=== PATIENT | female | born 1925 | race Caucasian/White ===

== ENCOUNTER → 2017-04-08 | Outpatient (CLI) | payer OTHER, MEDICARE ==
[~2017-04-08] MED LIST: ACT/35 PO; CALC600T37 PO; CETI10TA10 PO; CHOL400T PO; LISI-790 PO; MONT1TAB3 PO; OLOP0.1S2 OP; OSEL75CA12 PO; PANT40TA PO; SIMV20TA2 PO
[2017-04-08 17:27] LABS: BASO % 0.6 %; BASO ABS # 0.03 K/uL (0-0.2); COMPLETE YES; EOS % 1.4 %; HEMATOCRIT 37.5 % (37-47); IG% 0.2 %; LYMPH % 22.7 %; LYMPH ABS # 1.16 K/uL (1.2-3.4); MEAN CELL VOLUME 86.2 fL (80-100); MEAN CORPUSCULAR HEMOGLOBIN 28.3 pg (25-34); MEAN CORPUSCULAR HGB CONC 32.8 g/dl (32-36); MEAN PLATELET VOLUME 8.8 fL (7.4-10.4); MONO % 12.7 %; NEUT % 62.4 %; PLATELET COUNT 252 K/uL (130-400); RED BLOOD COUNT 4.35 M/uL (4.2-5.4)
[2017-04-08 18:07] LABS: ALT/SGPT 25 U/L (12-78); AST/SGOT 25 U/L (15-37); BLOOD UREA NITROGEN 16 mg/dl (7-18); BUN/CREATININE RATIO 16.5 (10-20); CALCIUM 9.3 mg/dl (8.5-10.1); CARBON DIOXIDE 29 mmol/L (21-32); CHLORIDE 94 mmol/L (98-107); GLUCOSE 91 mg/dl (70-99); POTASSIUM 4.5 mmol/L (3.5-5.1); SODIUM 129 mmol/L (136-145)
[2017-04-08 18:12] LABS: ALB/GLOB RATIO 1.2 (0.9-2); ALKALINE PHOSPHATASE 69 U/L (45-117)
== END | disposition home or self-care (01) ==
LOC: C.LABPBG 12:55
PROVIDERS: ATTEND Family Medicine
DX: R07.9 Chest pain, unspecified (principal); R68.84 Jaw pain

== ENCOUNTER → 2017-04-10 | Outpatient (CLI) | payer OTHER, MEDICARE ==
[2017-04-10 17:10] LABS: BLOOD UREA NITROGEN 14 mg/dl (7-18); BUN/CREATININE RATIO 16.1 (10-20); CALCIUM 8.9 mg/dl (8.5-10.1); CARBON DIOXIDE 27 mmol/L (21-32); CHLORIDE 96 mmol/L (98-107); CREATININE 0.85 mg/dl (0.60-1.20); GLUCOSE 130 mg/dl (70-99); POTASSIUM 4.4 mmol/L (3.5-5.1); SODIUM 128 mmol/L (136-145)
== END | disposition home or self-care (01) ==
LOC: C.LABPBG 11:48
PROVIDERS: ATTEND Family Medicine
DX: E87.1 Hypo-osmolality and hyponatremia (principal)

== ENCOUNTER → 2017-04-20 | Outpatient (CLI) | payer OTHER, MEDICARE ==
[2017-04-20 12:47] LABS: BLOOD UREA NITROGEN 27 mg/dl (7-18); BUN/CREATININE RATIO 26.9 (10-20); CALCIUM 9.3 mg/dl (8.5-10.1); CARBON DIOXIDE 28 mmol/L (21-32); CHLORIDE 100 mmol/L (98-107); CHOLESTEROL 204 mg/dl (0-200); GLUCOSE 76 mg/dl (70-99); POTASSIUM 4.8 mmol/L (3.5-5.1); SODIUM 132 mmol/L (136-145); TRIGLYCERIDES 89 mg/dl (0-150); VERY LOW DENSITY LIPOPROT CALC 18 mg/dl
[2017-04-20 12:58] LABS: CHOLESTEROL/HDL RATIO 2.2; HDL CHOLESTEROL 91 mg/dl; LDL CHOLESTEROL CALCULATED 95 mg/dl
== END | disposition home or self-care (01) ==
LOC: C.LABPBG 11:00
PROVIDERS: ATTEND Family Medicine
DX: E87.1 Hypo-osmolality and hyponatremia (principal)

== ENCOUNTER → 2017-04-29 | Outpatient (CLI) | payer OTHER, MEDICARE ==
[2017-04-29 17:33] LABS: BASO % 0.7 %; BASO ABS # 0.04 K/uL (0-0.2); COMPLETE YES; EOS % 1.6 %; HEMATOCRIT 36.5 % (37-47); IG% 0.4 %; LYMPH % 15.8 %; LYMPH ABS # 0.89 K/uL (1.2-3.4); MEAN CELL VOLUME 85.7 fL (80-100); MEAN CORPUSCULAR HEMOGLOBIN 28.2 pg (25-34); MEAN CORPUSCULAR HGB CONC 32.9 g/dl (32-36); MEAN PLATELET VOLUME 8.8 fL (7.4-10.4); MONO % 9.7 %; NEUT % 71.8 %; PLATELET COUNT 264 K/uL (130-400); RED BLOOD COUNT 4.26 M/uL (4.2-5.4); WHITE BLOOD COUNT 5.65 K/uL (4.8-10.8)
[2017-04-29 17:45] LABS: BLOOD UREA NITROGEN 11 mg/dl (7-18); CALCIUM 9.1 mg/dl (8.5-10.1); CARBON DIOXIDE 26 mmol/L (21-32); CHLORIDE 96 mmol/L (98-107); CREATININE 0.86 mg/dl (0.60-1.20); GLUCOSE 111 mg/dl (70-99); POTASSIUM 4.8 mmol/L (3.5-5.1); SODIUM 129 mmol/L (136-145)
[2017-04-29 17:59] LABS: URINE APPEARANCE CLEAR (CLEAR); URINE BILIRUBIN NEG (NEG); URINE COLOR YELLOW; URINE EPITHELIAL CELL AUTO 0-5 /lpf (0-5); URINE NITRITE NEG (NEG); URINE PH 7.5 (4.5-7.5); URINE SPECIFIC GRAVITY 1.012 (1.000-1.030); UROBILINOGEN NEG (NEG)
[2017-04-29 18:10] LABS: MANUAL MICROSCOPIC REQUIRED? NO; REVIEW REQ? NO
== END | disposition home or self-care (01) ==
LOC: C.LABPBG 12:05
PROVIDERS: ATTEND Family Medicine
DX: E87.1 Hypo-osmolality and hyponatremia (principal); R53.1 Weakness

== ENCOUNTER → 2017-06-23 | Outpatient (CLI) | payer OTHER, MEDICARE ==
[2017-06-23 17:58] LABS: BLOOD UREA NITROGEN 19 mg/dl (7-18); BUN/CREATININE RATIO 18.2 (10-20); CALCIUM 9.3 mg/dl (8.5-10.1); CARBON DIOXIDE 29 mmol/L (21-32); CHLORIDE 95 mmol/L (98-107); CREATININE 1.02 mg/dl (0.60-1.20); GLUCOSE 91 mg/dl (70-99); PHOSPHORUS 3.2 mg/dl (2.5-4.9); POTASSIUM 4.6 mmol/L (3.5-5.1); SODIUM 129 mmol/L (136-145)
== END | disposition home or self-care (01) ==
LOC: C.LABPBG 11:20
PROVIDERS: ATTEND Internal Medicine Nephrology
DX: E87.1 Hypo-osmolality and hyponatremia (principal)

== ENCOUNTER → 2017-07-06 | Outpatient (CLI) | payer OTHER, MEDICARE ==
[2017-07-06 13:19] LABS: HEMATOCRIT 37.9 % (37-47); MEAN CELL VOLUME 86.9 fL (80-100); MEAN CORPUSCULAR HEMOGLOBIN 28.7 pg (25-34); MEAN PLATELET VOLUME 8.9 fL (7.4-10.4); PLATELET COUNT 281 K/uL (130-400); RED BLOOD COUNT 4.36 M/uL (4.2-5.4); WHITE BLOOD COUNT 4.86 K/uL (4.8-10.8)
[2017-07-06 15:06] LABS: ALT/SGPT 21 U/L (12-78); BLOOD UREA NITROGEN 12 mg/dl (7-18); BUN/CREATININE RATIO 15.5 (10-20); CALCIUM 9.4 mg/dl (8.5-10.1); CARBON DIOXIDE 27 mmol/L (21-32); CHLORIDE 98 mmol/L (98-107); CHOLESTEROL 185 mg/dl (0-200); GLUCOSE 93 mg/dl (70-99); POTASSIUM 4.4 mmol/L (3.5-5.1); SODIUM 131 mmol/L (136-145); TRIGLYCERIDES 91 mg/dl (0-150); VERY LOW DENSITY LIPOPROT CALC 18 mg/dl
[2017-07-06 15:08] LABS: ALB/GLOB RATIO 1.2 (0.9-2); ALKALINE PHOSPHATASE 73 U/L (45-117); AST/SGOT 24 U/L (15-37); CHOLESTEROL/HDL RATIO 1.7; HDL CHOLESTEROL 106 mg/dl; LDL CHOLESTEROL CALCULATED 61 mg/dl; PHOSPHORUS 3.1 mg/dl (2.5-4.9)
== END | disposition home or self-care (01) ==
LOC: C.LABPBG 08:05
PROVIDERS: ATTEND Family Medicine
DX: E87.1 Hypo-osmolality and hyponatremia (principal); I10 Essential (primary) hypertension; E78.5 Hyperlipidemia, unspecified

== ENCOUNTER → 2017-07-15 | Outpatient (CLI) | payer OTHER, MEDICARE ==
[2017-07-15 12:53] LABS: BLOOD UREA NITROGEN 15 mg/dl (7-18); BUN/CREATININE RATIO 16.3 (10-20); CALCIUM 9.2 mg/dl (8.5-10.1); CARBON DIOXIDE 27 mmol/L (21-32); CHLORIDE 98 mmol/L (98-107); CREATININE 0.92 mg/dl (0.60-1.20); GLUCOSE 98 mg/dl (70-99); POTASSIUM 4.4 mmol/L (3.5-5.1); SODIUM 133 mmol/L (136-145)
[2017-07-15 12:54] LABS: PHOSPHORUS 3.2 mg/dl (2.5-4.9)
== END | disposition home or self-care (01) ==
LOC: C.LABPBG 09:20
PROVIDERS: ATTEND Internal Medicine Nephrology
DX: E87.1 Hypo-osmolality and hyponatremia (principal)

== ENCOUNTER 2017-09-02 18:10 | Inpatient (IN) | payer OTHER, MEDICARE ==
[~2017-09-02] VITALS: Ht 152.4 cm; Wt 60.8 kg
[~2017-09-02 18:10] MED LIST changes: -CETI10TA10 PO; -MONT1TAB3 PO; -PANT40TA PO
[2017-09-02] MEDS ORDERED: SODIUM CHLORIDE 0.9% 1000ML 1,000 ML IV STA (18:20)
[2017-09-02] MEDS ORDERED: RANI150T85 PO (18:56)
--- NOTE | 2017-09-02 19:00 | DIAGNOSTIC IMAGING REPORT ---
SINGLE VIEW CHEST CLINICAL HISTORY: Generalized weakness. Cough. FINDINGS: An AP, portable, upright chest radiograph is compared to study dated 11/28/2012. The examination is degraded by portable technique and patient rotation. The cardiac silhouette is not well evaluated. There is atherosclerotic calcification of the thoracic aorta. The pulmonary vasculature is noncongested. There is a large hiatal hernia. Bibasilar atelectasis is observed. No airspace consolidation is seen typical for pneumonia and there is no large pleural effusion. No pneumothorax is seen. The skeletal structures are osteopenic. Degenerative change and moderate scoliosis are identified in the thoracic spine. IMPRESSION: 1. No acute cardiopulmonary abnormality. 2. Large hiatal hernia. Electronically signed by: Montana Starr M.D. 09/02/2017 6:59 PM Dictated Date/Time: 09/02/2017 6:58 PM
[2017-09-02 19:36] LABS: BASO % 0.1 %; BASO ABS # 0.01 K/uL (0-0.2); EOS % 0.1 %; EOS ABS # 0.01 K/uL (0-0.5); HEMATOCRIT 40.7 % (37-47); HEMOGLOBIN 13.2 g/dL (12.0-16.0); IG# 0.01 K/uL (0.00-0.02); LYMPH % 5.6 %; LYMPH ABS # 0.55 K/uL (1.2-3.4); MEAN CELL VOLUME 87.3 fL (80-100); MEAN CORPUSCULAR HEMOGLOBIN 28.3 pg (25-34); MEAN CORPUSCULAR HGB CONC 32.4 g/dl (32-36); MEAN PLATELET VOLUME 8.7 fL (7.4-10.4); MONO % 7.8 %; MONO ABS # 0.77 K/uL (0.11-0.59); NEUT % 86.3 %; NEUT ABS # 8.46 K/uL (1.4-6.5); PLATELET COUNT 219 K/uL (130-400); RED CELL DISTRIBUTION WIDTH CV 14.4 % (11.5-14.5); RED CELL DISTRIBUTION WIDTH SD 46.2 fL (36.4-46.3); WHITE BLOOD COUNT 9.81 K/uL (4.8-10.8)
[2017-09-02 19:52] LABS: INR 0.9 (0.9-1.1); PTT PATIENT 25.7 SECONDS (21.0-31.0)
[2017-09-02 20:05] LABS: BLOOD UREA NITROGEN 11 mg/dl (7-18); CREATININE 0.94 mg/dl (0.60-1.20); GLUCOSE 130 mg/dl (70-99)
[2017-09-02 20:06] LABS: ALBUMIN 4.1 gm/dl (3.4-5.0); ALT/SGPT 24 U/L (12-78); AST/SGOT 22 U/L (15-37); CALCIUM 9.2 mg/dl (8.5-10.1); CARBON DIOXIDE 29 mmol/L (21-32); LIPASE 133 U/L (73-393); POTASSIUM 3.8 mmol/L (3.5-5.1); SODIUM 128 mmol/L (136-145)
[2017-09-02 20:14] LABS: ALKALINE PHOSPHATASE 83 U/L (45-117); CKMB 2.5 ng/ml (0.5-3.6); TOTAL PROTEIN 7.9 gm/dl (6.4-8.2)
[2017-09-02 20:19] LABS: INFLUENZA B ANTIGEN Neg for Influ B (NEG)
--- NOTE | 2017-09-02 20:34 | DIAGNOSTIC IMAGING REPORT ---
CT SCAN OF THE BRAIN WITHOUT IV CONTRAST CLINICAL HISTORY: Headache. COMPARISON STUDY: No priors. TECHNIQUE: Unenhanced axial CT scan of the brain is performed from the vertex to the skull base. A dose lowering technique was utilized adhering to the principles of ALARA. CT DOSE: 537.48 mGy.cm FINDINGS: Brain parenchyma: There are age-related involutional changes noting mild patchy subcortical and periventricular microangiopathic change. There is no hemorrhage, mass effect, or evidence of acute territorial ischemia by CT criteria. Hall-white matter is preserved. No extra-axial fluid collection is seen. Ventricles, sulci, cisterns: Prominent secondary to involutional change. Intracranial vasculature: There is atherosclerotic calcification of the cavernous carotid and vertebral arteries. Calvarium: Unremarkable. Sinuses and mastoids: Mild mucosal thickening is seen within the ethmoid sinuses. The remaining visualized paranasal sinuses are clear. There is trace fluid in the left mastoid air cells. The right mastoid air cells are well pneumatized. Orbits: The bony orbits are grossly intact. There is a right ocular lens implant. IMPRESSION: There is no hemorrhage, mass effect, or evidence of acute territorial ischemia by CT criteria. Electronically signed by: Montana Starr M.D. 09/02/2017 8:33 PM Dictated Date/Time: 09/02/2017 8:32 PM
[2017-09-02] MEDS ORDERED: ONDANSETRON INJ 2 MG/ML 2 ML VIAL IV STA (20:48)
[2017-09-02] MEDS ORDERED: ALBUT/IPRATROP 3MG/0.5MG NEB 3 ML VIAL INH STA (22:07)
[2017-09-02] MEDS ORDERED: AZITHROMYCIN 250 MG TAB PO STA (22:07)
[2017-09-02] MEDS ORDERED: ACETAMINOPHEN 500 MG TAB PO STA (22:47)
[2017-09-02] MEDS ORDERED: CEFTRIAXONE SOD INJ 1 GM ADDVIAL IV STA (22:47)
[2017-09-02] MEDS ORDERED: ONDANSETRON INJ 2 MG/ML 2 ML VIAL IV PRN (23:45)
[2017-09-02] MEDS ORDERED: NITROGLYCERIN 0.4 MG SL PER TAB CHARGE SL PRN (23:45)
[2017-09-02] MEDS ORDERED: ALUMINUM/MAGNESIUM/SIMETH (MAALOX MAX) 30 ML UDC PO PRN (23:45)
[2017-09-02] MEDS ORDERED: POLYETHYLENE (MIRALAX) 17 GM PACK PO PRN (23:45)
[2017-09-02] MEDS ORDERED: ACETAMINOPHEN 325 MG TAB PO PRN (23:45)
[2017-09-02] MEDS ORDERED: MAGNESIUM HYDROXIDE SUSP 30 ML UDC PO PRN (23:45)
--- NOTE | 2017-09-02 23:56 | History and Physical ---
History & Physical Date & Time of Service: Sep 02, 2017 at 23:56 Chief Complaint: Headache,Neck Pain,Chest Cough Primary Care Physician: Moriah Hines DO History of Present Illness Source: patient, hospital records This is an 89 y/o F who presents with generalized weakness and illness for 2 weeks. She started off with a URI and has had worsening congestion, cough. She did also start to become slightly short of breath today. Today she also complains of headache and neck pain, generalized achiness and fatigue. She denies other symptoms. She does take sodium chronically for low sodium. She has taken nebulizer tx, delsum and tylenol. She sees cardiology for mitral and tricuspid regurg. The patient though would like to go home. She was hypoxic in the ER in the 's. The patient does have a history of asthma. Family History Patient reports no known family medical history. Social History Smoking Status: Never Smoker Alcohol Use: none Drug Use: none Occupational Status: retired Immunizations History of Influenza Vaccine: Unknown History of Tetanus Vaccine?: Unknown History of Pneumococcal: Unknown History of Hepatitis B Vaccine: Unknown Multi-Drug Resistant Organisms History of MDRO: No Allergies Coded Allergies: No Known Allergies (Unverified , 09/02/17) Home Medications Scheduled Azithromycin (Azithromycin), 250 MG PO QAM Benzonatate (Tessalon Perles), 1 CAP PO TID Calcium (Calcium), 1 TAB PO DAILY Cephalexin Monohydrate (Keflex), 500 MG PO BID Cetirizine Hcl (Zyrtec), 10 MG PO DAILY Fluticasone Prop/Salmeterol (Advair Diskus 250-50 Mcg/Dose), 1 PUFF INH BID Lisinopril (Lisinopril), 20 MG PO QAM Montelukast Sodium (Singulair), 10 MG PO QAM Multivitamin (Multivitamin), 1 TAB PO DAILY Pantoprazole (Protonix), 40 MG PO QAM Prednisone (Prednisone), 60 MG PO DAILY Ranitidine (Zantac), 150 MG PO QPM Sodium Chloride (Sodium Chloride), 1 GM PO BID Scheduled PRN Albuterol Sulf (Albuterol Sulfate), 2.5 MG INH Q6R PRN for Shortness of Breath Review of Systems Constitutional: + weakness, + fatigue, No fever, No chills Eyes: No worsening of vision Respiratory: + cough, + sputum, + shortness of breath, + dyspnea on exertion, + dyspnea at rest, No wheezing Abdomen: No pain, No nausea, No vomiting, No diarrhea Genitourinary - Female: No dysuria, No urinary frequency, No urinary urgency Physical Exam Vital Signs Date Time Temp Pulse Resp B/P (MAP) Pulse Ox O2 Delivery O2 Flow Rate FiO2 09/02/17 23:30 69 17 161/77 96 Nasal Cannula 2.0 09/02/17 23:07 62 09/02/17 23:00 82 16 154/78 98 Nasal Cannula 2.0 09/02/17 22:30 73 19 170/86 95 Nasal Cannula 2.0 09/02/17 22:30 78 170/86 97 Nasal Cannula 2.0 09/02/17 22:02 69 149/91 97 Room Air 09/02/17 22:00 69 13 149/91 97 09/02/17 21:23 92 Nasal Cannula 2.0 09/02/17 21:22 88 Room Air 09/02/17 20:56 61 16 179/89 93 Room Air 09/02/17 20:50 61 194/89 93 Room Air 09/02/17 19:16 71 09/02/17 18:28 94 Room Air 09/02/17 18:12 36.2 77 20 194/87 94 Room Air General Appearance: no apparent distress Eyes: PERRL, EOMI ENT: hearing grossly normal Respiratory/Chest: no respiratory distress, no accessory muscle use, + decreased breath sounds, + rhonchi Cardiovascular: regular rate, rhythm, no edema, + systolic murmur Abdomen/GI: normal bowel sounds, non tender, soft Extremities/Musculoskelatal: no pedal edema Neurologic/Psych: machine try out setter II-XII nml as tested, no motor/sensory deficits, normal mood/affect, oriented x 3 Diagnostics Laboratory Results Results Past 24 Hours Test 09/02/17 19:14 09/02/17 19:15 09/02/17 19:45 Range/Units Urine Color YELLOW Urine Appearance CLEAR CLEAR Urine pH 7.5 4.5-7.5 Urine Specific [place] 1.016 1.000-1.030 Urine Protein NEG NEG Urine Glucose (UA) NEG NEG Urine Ketones TRACE NEG Urine Occult Blood NEG NEG Urine Nitrite NEG NEG Urine Bilirubin NEG NEG Urine Urobilinogen NEG NEG Urine Leukocyte Esterase SMALL NEG Urine WBC (Auto) 1-5 0-5 /hpf Urine RBC (Auto) 0-4 0-4 /hpf Urine Hyaline Casts (Auto) 0 0-5 /lpf Urine Epithelial Cells (Auto) 0-5 0-5 /lpf Urine Bacteria (Auto) NEG NEG White Blood Count 9.81 4.8-10.8 K/uL Red Blood Count 4.66 4.2-5.4 M/uL Hemoglobin 13.2 12.0-16.0 g/dL Hematocrit 40.7 37-47 % Mean Corpuscular Volume 87.3 80-100 fL Mean Corpuscular Hemoglobin 28.3 25-34 pg Mean Corpuscular Hemoglobin Concent 32.4 32-36 g/dl Platelet Count 219 130-400 K/uL Mean Platelet Volume 8.7 7.4-10.4 fL Neutrophils (%) (Auto) 86.3 % Lymphocytes (%) (Auto) 5.6 % Monocytes (%) (Auto) 7.8 % Eosinophils (%) (Auto) 0.1 % Basophils (%) (Auto) 0.1 % Neutrophils # (Auto) 8.46 1.4-6.5 K/uL Lymphocytes # (Auto) 0.55 1.2-3.4 K/uL Monocytes # (Auto) 0.77 0.11-0.59 K/uL Eosinophils # (Auto) 0.01 0-0.5 K/uL Basophils # (Auto) 0.01 0-0.2 K/uL RDW Standard Deviation 46.2 36.4-46.3 fL RDW Coefficient of Variation 14.4 11.5-14.5 % Immature Granulocyte % (Auto) 0.1 % Immature Granulocyte # (Auto) 0.01 0.00-0.02 K/uL Prothrombin Time 9.7 9.0-12.0 SECONDS Prothromb Time International Ratio 0.9 0.9-1.1 Activated Partial Thromboplast Time 25.7 21.0-31.0 SECONDS Partial Thromboplastin Ratio 1.0 Sodium Level 128 136-145 mmol/L Potassium Level 3.8 3.5-5.1 mmol/L Chloride Level 94 98-107 mmol/L Carbon Dioxide Level 29 21-32 mmol/L Anion Gap 5.0 3-11 mmol/L Blood Urea Nitrogen 11 7-18 mg/dl Creatinine 0.94 0.60-1.20 mg/dl Est Creatinine Clear Calc Drug Dose 33.8 ml/min Estimated GFR () 62.3 Estimated GFR (Non- 53.8 BUN/Creatinine Ratio 11.3 10-20 Random Glucose 130 70-99 mg/dl Calcium Level 9.2 8.5-10.1 mg/dl Magnesium Level 1.9 1.8-2.4 mg/dl Total Bilirubin 0.4 0.2-1 mg/dl Direct Bilirubin 0.1 0-0.2 mg/dl Aspartate Amino Transf (AST/SGOT) 22 15-37 U/L Alanine Aminotransferase (ALT/SGPT) 24 12-78 U/L Alkaline Phosphatase 83 45-117 U/L Total Creatine Kinase 130 26-192 U/L Creatine Kinase MB 2.5 0.5-3.6 ng/ml Creatine Kinase MB Ratio 1.9 0-3.0 Troponin I < 0.015 0-0.045 ng/ml Total Protein 7.9 6.4-8.2 gm/dl Albumin 4.1 3.4-5.0 gm/dl Lipase 133 73-393 U/L Thyroid Stimulating Hormone (TSH) 2.000 0.300-4.500 uIu/ml Influenza Type A Antigen Neg for Influ A NEG Influenza Type B Antigen Neg for Influ B NEG Microbiology Results 09/02/17 Blood Culture, Received Pending 09/02/17 Blood Culture, Received Pending 09/02/17 Urine Culture, Received Pending Impression Assessment and Plan This is an 89 y/o F who presents hypoxia/shortness of breath Asthmatic Bronchitis Rocephin Azithromycin Albuterol q6h prn singulair Htn Continue Lisinopril Chronic hyponatremia Continue sodium suppl Code: Patient unsure, "never thought about this" discussed with daughter and placed as Full. re-visit tomorrow Attending addendum: I have physically seen this patient, have supervised the medical residents activities, and agree with the H&P unless as otherwise noted. Assessment and Plan: Asthmatic bronchitis with hypoxia-- Ceftriaxone 1 g IV daily Azithromycin 500 mg IV daily Duonebs every 4 hours while awake and every 2 hours when necessary. Continue Singulair 10 mg daily next Hyponatremia-128 on admission check serum and urine osmolality Continue current sodium supplementation Hypertension-- Continue lisinopril with hold parameters Hyperglycemia--130 on admission Check a hemoglobin A1c Level of Care Med/Surg Advanced Directives Existing Advance Directive: No Existing Living Will: No Existing Power of Technical Operations Manager: No Resuscitation Status FULL RESUSCITATION VTE Prophylaxis VTE Risk Assessment Done? Y/N: Yes Risk Level: Moderate Given or contraindicated: SCD's
[2017-09-03] VITALS (11 sets, daily range): BP systolic 109–160; BP diastolic 53–98; PULSE 64–96; TEMP 36.4–36.7; O2SAT 87–96; Ht 152.4 cm; Wt 60.8 kg
--- NOTE | 2017-09-03 00:12 | EMERGENCY ROOM VISIT NOTE ---
History Report prepared by Autumn: Socrates Chavez Under the Supervision of: Dr. Wyatt Bolden M.D. First contact with patient: 18:19 Chief Complaint: ILLNESS Stated Complaint: HEADACHE,NECK PAIN,CHEST COUGH History of Present Illness The patient is a 89 year old female who presents to the Emergency Room with complaints of worsening general illness that began 2 weeks ago. She rates her discomfort as an 8/10 in severity. The patient is accompanied by her daughter who states that the patient has been experiencing chest congestion, rhinorrhea, and a cough for the last two weeks. She reports that the patient's symptoms have been worsening today. She states that the patient has been mildly short of breath due to her cough. Her daughter states that today, the patient developed a headache and neck pain that worsened throughout the day. She states that the patient was given a nebulizer treatment at 1300, Tylenol at 1600, and Delsym for her symptoms. Her daughter states that she called the patient's primary care physician who scheduled an appointment for tomorrow, but told her to bring the patient to [facility]. She states that at [facility], they told her to report to the ED. The patient states that she currently is experiencing generalized achiness, neck pain, and fatigue. She denies taking blood thinners, fever, sick contact, a history of pneumonia, weakness, abdominal pain, urinary symptoms, diarrhea, rash, and sorethroat. The patient's daughter states that the patient usually takes a sodium pill due to her low sodium levels, but states that the patient has not been taking it recently due to her high blood pressure. She states that the patient also has a history of a leaky mitral and tricuspid valve, which she follows up for with Dr. Casillas. The patient also reports a history of asthma, which she takes Albuterol for. Source of History: patient Onset: 2 weeks ago Position: other (global) Symptom Intensity: 8/10 Timing: worsening Modifying Factors (Relieving): tylenol, other (Nebulizer, Delsym) Associated Symptoms: + headache, + cough, + neck pain, + SOB, + fatigue, No fevers, No sorethroat, No abdominal pain, No diarrhea, No urinary symptoms, No weakness, No rash Review of Systems See HPI for pertinent positives and negatives. A total of ten systems were reviewed and were otherwise negative. Past Medical & Surgical Medical Problems: (1) Asthma (2) Asthmatic bronchitis (3) Hypoxia Family History Patient reports no known family medical history. Social History Smoking Status: Never Smoker Alcohol Use: none Drug Use: none Housing Status: lives alone Occupation Status: retired Current/Historical Medications Scheduled Calcium (Calcium), 1 TAB PO DAILY Cetirizine Hcl (Zyrtec), 10 MG PO DAILY Lisinopril (Lisinopril), 20 MG PO QAM Montelukast Sodium (Singulair), 10 MG PO QAM Multivitamin (Multivitamin), 1 TAB PO DAILY Pantoprazole (Protonix), 40 MG PO QAM Ranitidine (Zantac), 150 MG PO QPM Sodium Chloride (Sodium Chloride), 1 GM PO BID Allergies Coded Allergies: No Known Allergies (Unverified , 09/02/17) Physical Exam Vital Signs Date Time Temp Pulse Resp B/P (MAP) Pulse Ox O2 Delivery O2 Flow Rate FiO2 09/02/17 23:30 69 17 161/77 96 Nasal Cannula 2.0 09/02/17 23:07 62 09/02/17 23:00 82 16 154/78 98 Nasal Cannula 2.0 09/02/17 22:30 73 19 170/86 95 Nasal Cannula 2.0 09/02/17 22:30 78 170/86 97 Nasal Cannula 2.0 09/02/17 22:02 69 149/91 97 Room Air 09/02/17 22:00 69 13 149/91 97 09/02/17 21:23 92 Nasal Cannula 2.0 09/02/17 21:22 88 Room Air 09/02/17 20:56 61 16 179/89 93 Room Air 09/02/17 20:50 61 194/89 93 Room Air 09/02/17 19:16 71 09/02/17 18:28 94 Room Air 09/02/17 18:12 36.2 77 20 194/87 94 Room Air Physical Exam GENERAL: Awake, alert, tired, mildly-appearing, in no distress HENT: Normocephalic, atraumatic. Oropharynx unremarkable. EYES: Normal conjunctiva. Sclera non-icteric. NECK: Supple. No nuchal rigidity. FROM. No JVD. RESPIRATORY: Coarse rhonchi congestion bilaterally. CARDIAC: Regular rate, normal rhythm. Extremities warm and well perfused. Pulses equal. ABDOMEN: Soft, non-distended. No tenderness to palpation. No rebound or guarding. No masses. RECTAL: Deferred. MUSCULOSKELETAL: Chest examination reveals no tenderness. The back is symmetrical on inspection without obvious abnormality. There is no CVA tenderness to palpation. No joint edema. LOWER EXTREMITIES: Calves are equal size bilaterally and non-tender. No edema. No discoloration. NEURO: Normal sensorium. No sensory or motor deficits noted. SKIN: No rash or jaundice noted. Medical Decision & Procedures ER Provider Diagnostic Interpretation: Radiology results as stated below per my review and radiologist interpretation: SINGLE VIEW CHEST CLINICAL HISTORY: Generalized weakness. Cough. FINDINGS: An AP, portable, upright chest radiograph is compared to study dated 11/28/2012. The examination is degraded by portable technique and patient rotation. The cardiac silhouette is not well evaluated. There is atherosclerotic calcification of the thoracic aorta. The pulmonary vasculature is noncongested. There is a large hiatal hernia. Bibasilar atelectasis is observed. No airspace consolidation is seen typical for pneumonia and there is no large pleural effusion. No pneumothorax is seen. The skeletal structures are osteopenic. Degenerative change and moderate scoliosis are identified in the thoracic spine. IMPRESSION: 1. No acute cardiopulmonary abnormality. 2. Large hiatal hernia. Electronically signed by: Montana Starr M.D. 09/02/2017 6:59 PM Dictated Date/Time: 09/02/2017 6:[address] SCAN OF THE BRAIN WITHOUT IV CONTRAST CLINICAL HISTORY: Headache. COMPARISON STUDY: No priors. TECHNIQUE: Unenhanced axial CT scan of the brain is performed from the vertex to the skull base. A dose lowering technique was utilized adhering to the principles of ALARA. CT DOSE: 537.48 mGy.cm FINDINGS: Brain parenchyma: There are age-related involutional changes noting mild patchy subcortical and periventricular microangiopathic change. There is no hemorrhage, mass effect, or evidence of acute territorial ischemia by CT criteria. Hall-white matter is preserved. No extra-axial fluid collection is seen. Ventricles, sulci, cisterns: Prominent secondary to involutional change. Intracranial vasculature: There is atherosclerotic calcification of the cavernous carotid and vertebral arteries. Calvarium: Unremarkable. Sinuses and mastoids: Mild mucosal thickening is seen within the ethmoid sinuses. The remaining visualized paranasal sinuses are clear. There is trace fluid in the left mastoid air cells. The right mastoid air cells are well pneumatized. Orbits: The bony orbits are grossly intact. There is a right ocular lens implant. IMPRESSION: There is no hemorrhage, mass effect, or evidence of acute territorial ischemia by CT criteria. Electronically signed by: Montana Starr M.D. 09/02/2017 8:33 PM Dictated Date/Time: 09/02/2017 8:32 PM Laboratory Results 09/02/17 19:15 Red Blood Count 4.66, Mean Corpuscular Volume 87.3, Mean Corpuscular Hemoglobin 28.3, Mean Corpuscular Hemoglobin Concent 32.4, Mean Platelet Volume 8.7, Neutrophils (%) (Auto) 86.3, Lymphocytes (%) (Auto) 5.6, Monocytes (%) (Auto) 7.8, Eosinophils (%) (Auto) 0.1, Basophils (%) (Auto) 0.1, Neutrophils # (Auto) 8.46, Lymphocytes # (Auto) 0.55, Monocytes # (Auto) 0.77, Eosinophils # (Auto) 0.01, Basophils # (Auto) 0.01 09/02/17 19:15 Test 09/02/17 19:14 09/02/17 19:15 09/02/17 19:45 Urine Color YELLOW Urine Appearance CLEAR (CLEAR) Urine pH 7.5 (4.5-7.5) Urine Specific [place] 1.016 (1.000-1.030) Urine Protein NEG (NEG) Urine Glucose (UA) NEG (NEG) Urine Ketones TRACE (NEG) Urine Occult Blood NEG (NEG) Urine Nitrite NEG (NEG) Urine Bilirubin NEG (NEG) Urine Urobilinogen NEG (NEG) Urine Leukocyte Esterase SMALL (NEG) Urine WBC (Auto) 1-5 /hpf (0-5) Urine RBC (Auto) 0-4 /hpf (0-4) Urine Hyaline Casts (Auto) 0 /lpf (0-5) Urine Epithelial Cells (Auto) 0-5 /lpf (0-5) Urine Bacteria (Auto) NEG (NEG) White Blood Count 9.81 K/uL (4.8-10.8) Red Blood Count 4.66 M/uL (4.2-5.4) Hemoglobin 13.2 g/dL (12.0-16.0) Hematocrit 40.7 % (37-47) Mean Corpuscular Volume 87.3 fL (80-100) Mean Corpuscular Hemoglobin 28.3 pg (25-34) Mean Corpuscular Hemoglobin Concent 32.4 g/dl (32-36) Platelet Count 219 K/uL (130-400) Mean Platelet Volume 8.7 fL (7.4-10.4) Neutrophils (%) (Auto) 86.3 % Lymphocytes (%) (Auto) 5.6 % Monocytes (%) (Auto) 7.8 % Eosinophils (%) (Auto) 0.1 % Basophils (%) (Auto) 0.1 % Neutrophils # (Auto) 8.46 K/uL (1.4-6.5) Lymphocytes # (Auto) 0.55 K/uL (1.2-3.4) Monocytes # (Auto) 0.77 K/uL (0.11-0.59) Eosinophils # (Auto) 0.01 K/uL (0-0.5) Basophils # (Auto) 0.01 K/uL (0-0.2) RDW Standard Deviation 46.2 fL (36.4-46.3) RDW Coefficient of Variation 14.4 % (11.5-14.5) Immature Granulocyte % (Auto) 0.1 % Immature Granulocyte # (Auto) 0.01 K/uL (0.00-0.02) Prothrombin Time 9.7 SECONDS (9.0-12.0) Prothromb Time International Ratio 0.9 (0.9-1.1) Activated Partial Thromboplast Time 25.7 SECONDS (21.0-31.0) Partial Thromboplastin Ratio 1.0 Anion Gap 5.0 mmol/L (3-11) Est Creatinine Clear Calc Drug Dose 33.8 ml/min Estimated GFR () 62.3 Estimated GFR (Non- 53.8 BUN/Creatinine Ratio 11.3 (10-20) Calcium Level 9.2 mg/dl (8.5-10.1) Magnesium Level 1.9 mg/dl (1.8-2.4) Total Bilirubin 0.4 mg/dl (0.2-1) Direct Bilirubin 0.1 mg/dl (0-0.2) Aspartate Amino Transf (AST/SGOT) 22 U/L (15-37) Alanine Aminotransferase (ALT/SGPT) 24 U/L (12-78) Alkaline Phosphatase 83 U/L (45-117) Total Creatine Kinase 130 U/L (26-192) Creatine Kinase MB 2.5 ng/ml (0.5-3.6) Creatine Kinase MB Ratio 1.9 (0-3.0) Troponin I < 0.015 ng/ml (0-0.045) Total Protein 7.9 gm/dl (6.4-8.2) Albumin 4.1 gm/dl (3.4-5.0) Lipase 133 U/L (73-393) Thyroid Stimulating Hormone (TSH) 2.000 uIu/ml (0.300-4.500) Influenza Type A Antigen Neg for Influ A (NEG) Influenza Type B Antigen Neg for Influ B (NEG) Laboratory results reviewed by me Medications Administered Medications (Trade) Dose Ordered Sig/[place] Route Start Time Stop Time Status Last Admin Dose Admin Sodium Chloride 1,000 ml @ 125 mls/hr Q8H STAT IV 09/02/17 18:20 09/03/17 02:19 09/02/17 18:20 125 MLS/HR Ondansetron HCl (Zofran Inj) 4 mg NOW STAT IV 09/02/17 20:48 09/02/17 20:49 DC 09/02/17 20:55 4 MG Azithromycin (Zithromax Tab) 500 mg NOW STAT PO 09/02/17 22:07 09/02/17 22:09 DC 09/02/17 22:39 500 MG Albuterol/ Ipratropium (Duoneb) 3 ml NOW STAT INH 09/02/17 22:07 09/02/17 22:09 DC 09/02/17 22:07 3 ML Ceftriaxone Sodium (Rocephin Inj) 1 gm NOW STAT IV 09/02/17 22:47 09/02/17 22:50 DC 09/02/17 23:21 1 GM Acetaminophen (Tylenol Tab) 1,000 mg NOW STAT PO 09/02/17 22:47 09/02/17 22:50 DC 09/02/17 23:21 1,000 MG ECG Indication: weakness Rate (beats per minute): 68 Rhythm: normal sinus Findings: Q waves (vinny), no acute ischemic change, no ectopy ED Course 1820: Ordered Sodium Chloride 1000 ml @ 125 mls/hr IV. 1828: The patient was evaluated in room C02B. A complete history and physical exam was performed. 2047: Ordered Zofran Injection 4 mg IV. 2156: I reevaluated the patient and she is feeling better. She is requiring supplemental oxygen. I discussed her results and treatment plan. She agrees to the plan and will be further evaluated. 2206: Ordered Duoneb 3 ml INH, Zithromax Tab 500 mg PO. 2220: I discussed the patients case with Dr. Thapa [facility] Hospitalist. He understands the patients condition and agrees to accept the patient. The patient will be further evaluated. Medical Decision Triage Nursing notes reviewed. The patient's presentation and history were concerning for flulike symptoms and history of hyponatremia Etiologies such as metabolic, infection, hypo/hyperglycemia, electrolyte abnormalities, cardiac sources, intracerebral event, toxicologic, neurologic, as well as others were entertained. The patient was evaluated. She looked mildly ill but was nonfocal. She did not have any meningeal findings. She had no fever. Blood work was done. She had no leukocytosis but she was hyponatremic. Cardiac markers were negative. Electronic are otherwise okay. Urinalysis and flu testing were negative. Her chest x-ray did not reveal any evidence of pneumonia. The patient did have a CT scan performed and this was negative. She was found to become hypoxic and has noted a significant cough. She was placed on supplemental oxygen and did well with this. She was actually feeling better with the supplemental oxygen. Her aches and pains and headache were improved. The patient was then given a dose of Tylenol, a breathing treatment, Zithromax and Rocephin. I did discuss the case with internal medicine and the patient was evaluated in the Emergency Room for further management of her illness. Medication Reconcilliation Current Medication List: was personally reviewed by me Blood Pressure Screening Patient's blood pressure: Elevated blood pressure Referred to Hospitalist. Consults Time Called: 2206 Consulting Physician: Dr. Thapa [facility] Hospitalist Returned Call: 2220 I discussed the patients case with Dr. Thapa [facility] Hospitalist. He understands the patients condition and agrees to accept the patient. The patient will be further evaluated. Impression Primary Impression: Hyponatremia Additional Impressions: Hypoxia Bronchitis Headache Scribe Attestation The scribe's documentation has been prepared under my direction and personally reviewed by me in its entirety. I confirm that the note above accurately reflects all work, treatment, procedures, and medical decision making performed by me. Departure Information Dispostion Being Evaluated By Hospitalist Referrals No Doctor, Assigned (PCP) Patient Instructions My [facility] Problem Qualifiers
--- NOTE | 2017-09-03 00:45 | NUR ---
Patient arrives to PCU via stretcher, placed in bed, vital obtained and pvc monitor applied. Primary RN present for ADT, see EMR for admission details. Currently relates headache, primary RN addressing. Code word and fall risk paperwork completed. Denies needs upon leaving room.
[2017-09-03] MEDS: SODIUM CHLORIDE 0.9% 1000ML 1,000 ML IV SCH ×3 (01:05→16:37)
--- NOTE | 2017-09-03 04:00 | NUR ---
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
[2017-09-03] MEDS ORDERED: ALBUTEROL 0.083% NEBU SOLN 3 ML VIAL INH PRN (05:30)
[2017-09-03 06:24] LABS: CALCIUM 8.6 mg/dl (8.5-10.1); CREATININE 0.67 mg/dl (0.60-1.20); POTASSIUM 4.1 mmol/L (3.5-5.1)
[2017-09-03] MEDS: ENOXAPARIN 40 MG/0.4 ML SYR SC SCH (07:51)
[2017-09-03] MEDS: CETIRIZINE HCL 10 MG TAB PO SCH (07:52)
[2017-09-03] MEDS: AZITHROMYCIN 250 MG TAB PO SCH (07:52)
[2017-09-03] MEDS: CALCIUM 600MG + VIT D 400 IU TAB PO SCH (07:52)
[2017-09-03] MEDS: LISINOPRIL 20 MG TAB PO SCH (07:52)
[2017-09-03] MEDS: MULTIVITAMIN TAB PO SCH (07:52)
[2017-09-03] MEDS: MONTELUKAST SOD 10 MG TAB PO SCH (07:53)
[2017-09-03] MEDS: PANTOprazole SOD 40 MG TAB PO SCH (07:53)
[2017-09-03] MEDS: SODIUM CHLORIDE 1 GM TAB PO SCH ×2 (07:53→20:42)
--- NOTE | 2017-09-03 08:00 | NUR ---
Patient alert and oriented, but at times forgetful. Patient awake in bed this morning eating breakfast. Patient c/o of some mild neck pain, but refuses pain medicine. Patient remains on 2L NC with a spo2 of 94-96%. Failed attempts to wean o2 to RA, spo2 dropped to 87%. Patient continues to have a moist nonproductive cough, and remains on 2L NC. Plans to reassess oxygen need this afternoon. Patient's IV intact and patent. NSS infusing at 75cc/hr. Blood cultures pending. UA pending. Please refer to charting for full assessment. Patient denies any further needs at this time. VS remain stable. Will continue to monitor.
--- NOTE | 2017-09-03 10:47 | Family Medicine Progress Note ---
Progress Note Date of Service Sep 03, 2017. Subjective Pt evaluation today including: conversation w/ patient, conversation w/ family , physical exam, chart review, lab review, review of studies Pain: denies PO Intake: adequate Voiding: no voiding problems NO acute events overnight. Per nursing this morning, patient was taken off supplemental oxygen and patietn desaturated to 87%. Patient reports SOB is improved but continues to report cough. She denied CP, palpitation, calf tenderness Constitutional: No fever, No chills Respiratory: + cough, + sputum, + shortness of breath Cardiovascular: No chest pain, No palpitations Abdomen: No pain, No nausea, No vomiting Skin: No rash, No itch Medications Current Inpatient Medications Medications (Trade) Dose Ordered Sig/Liberty Route Start Time Stop Time Status Last Admin Dose Admin Enoxaparin Sodium (Lovenox Inj) 40 mg Q24H SC 09/03/17 09:00 10/03/17 08:59 09/03/17 07:51 40 MG Sodium Chloride 1,000 ml @ 75 mls/hr [id number] IV 09/03/17 01:30 10/03/17 01:29 09/03/17 01:05 75 MLS/HR Acetaminophen (Tylenol Tab) 650 mg Q4H PRN PO 09/02/17 23:45 10/02/17 23:44 Al Hydrox/Mg Hydrox/Simethicone (Maalox Max Susp) 15 ml Q4H PRN PO 09/02/17 23:45 10/02/17 23:44 Magnesium Hydroxide (Milk Of Magnesia Susp) 30 ml Q12H PRN PO 09/02/17 23:45 10/02/17 23:44 Ondansetron HCl (Zofran Inj) 4 mg Q6H PRN IV 09/02/17 23:45 10/02/17 23:44 Nitroglycerin (Nitrostat Tab) 0.4 mg UD PRN SL 09/02/17 23:45 10/02/17 23:44 Polyethylene (Miralax Powder Packet) 17 gm DAILY PRN PO 09/02/17 23:45 10/02/17 23:44 Cetirizine HCl (zyrTEC TAB) 10 mg DAILY PO 09/03/17 09:00 10/03/17 08:59 09/03/17 07:52 10 MG Lisinopril (Zestril Tab) 20 mg QAM PO 09/03/17 09:00 10/03/17 08:59 09/03/17 07:52 20 MG Montelukast Sodium (Singulair Tab) 10 mg QAM PO 09/03/17 09:00 10/03/17 08:59 09/03/17 07:53 10 MG Multivitamins (Multivitamin Tab) 1 tab DAILY PO 09/03/17 09:00 10/03/17 08:59 09/03/17 07:52 1 TAB Pantoprazole Sodium (Protonix Tab) 40 mg QAM PO 09/03/17 09:00 10/03/17 08:59 09/03/17 07:53 40 MG Ranitidine HCl (zANTac TAB) 150 mg QPM PO 09/03/17 21:00 10/03/17 20:59 Sodium Chloride (Sodium Chloride Tab) 1 gm BID PO 09/03/17 09:00 10/03/17 08:59 09/03/17 07:53 1 GM Calcium/Vitamin D (Caltrate Plus Tab) 1 tab DAILY PO 09/03/17 09:00 10/03/17 08:59 09/03/17 07:52 1 TAB Ceftriaxone Sodium 2000 mg/ Dextrose 70 ml @ 100 mls/hr Q24H IV 09/03/17 23:00 09/08/17 23:41 Azithromycin (Zithromax Tab) 250 mg QAM PO 09/03/17 09:00 09/10/17 08:59 09/03/17 07:52 250 MG Albuterol Sulfate (Ventolin 0.083% 2.5MG/3ML Neb) 2.5 mg Q6R PRN INH 09/03/17 05:30 10/03/17 05:29 Objective Vital Signs Date Time Temp Pulse Resp B/P (MAP) Pulse Ox O2 Delivery O2 Flow Rate FiO2 09/03/17 08:00 96 Nasal Cannula 2.0 09/03/17 07:56 36.6 83 14 118/53 (74) 96 Nasal Cannula 2.0 09/03/17 04:00 36.5 66 12 131/65 (87) 96 Nasal Cannula 2.0 09/03/17 04:00 96 Nasal Cannula 2.0 09/03/17 00:45 36.4 81 18 159/98 09/03/17 00:41 81 136/63 98 09/02/17 23:30 69 17 161/77 96 Nasal Cannula 2.0 09/02/17 23:07 62 09/02/17 23:00 82 16 154/78 98 Nasal Cannula 2.0 09/02/17 22:30 73 19 170/86 95 Nasal Cannula 2.0 09/02/17 22:30 78 170/86 97 Nasal Cannula 2.0 09/02/17 22:02 69 149/91 97 Room Air 09/02/17 22:00 69 13 149/91 97 09/02/17 21:23 92 Nasal Cannula 2.0 09/02/17 21:22 88 Room Air 09/02/17 20:56 61 16 179/89 93 Room Air 09/02/17 20:50 61 194/89 93 Room Air 09/02/17 19:16 71 09/02/17 18:28 94 Room Air 09/02/17 18:12 36.2 77 20 194/87 94 Room Air Physical Exam Notes: GENERAL: alert, no distress, EYE EXAM: normal conjunctiva, PERRL and EOM's grossly intact LUNGS: Clear to auscultation. Dec'd Breath sounds bilaterally HEART: no murmurs, S1 normal and S2 normal ABDOMEN: abdomen soft, non-tender, normo-active bowel sounds, no masses, no rebound or guarding. LOWER EXTREMITIES: No pitting edema. NEURO EXAM: AO x3, cranial nerves II-XII grossly intact, normal speech Laboratory Results Results Past 24 Hours Test 09/03/17 05:27 Range/Units Sodium Level 131 136-145 mmol/L Potassium Level 4.1 3.5-5.1 mmol/L Chloride Level 97 98-107 mmol/L Carbon Dioxide Level 28 21-32 mmol/L Anion Gap 6.0 3-11 mmol/L Blood Urea Nitrogen 10 7-18 mg/dl Creatinine 0.67 0.60-1.20 mg/dl Est Creatinine Clear Calc Drug Dose 46.4 ml/min Estimated GFR () 90.3 Estimated GFR (Non- 77.9 BUN/Creatinine Ratio 15.1 10-20 Random Glucose 110 70-99 mg/dl Calcium Level 8.6 8.5-10.1 mg/dl Assessment and Plan 89 yo F with h/o Asthma on Albuterol nebulizer Singulair at home, presented with progressive SOB, cough secondary to Asthma exacerbation Asthma Exacerbation * Asthma exacerbation in the setting of URI vs Bronchitis vs sinusiti s * on albuterol nebs at home * saturating well on 2L, Wean as tolerated * Continue Azithromycin, Ceftriaxone Hypertension * BP controlled * Continue Lisinopril Chronic Hyponatremia * Continue Na supplementation 1 gm BID NaCl GERD * Ranitidine, Protonix DVT Prophylaxis * Lovenox Resident Physician Supervision Note: I interviewed and examined the patient. Discussed with Dr. Hernandez and agree with findings and plan as documented in the note. Any exceptions or clarifications are listed here: None Documented By: Jose Adam feeling better. still needing O2. vitals noted nad breathing unlabored asthmatic bronchitis, likely bacterial sinusitis - abx, supportive care, wean O2 , otherwise as above Continued [facility] stay due to: abnormal vital signs Discharge planning: home Resident Tracking Resident Involvement: Resident Care Provided Care Provided: Adult Hospital Medicine
--- NOTE | 2017-09-03 12:00 | NUR ---
Previous assessment unchanged unless noted. Patient resting in bed, eating lunch. Daughter at bedside. O2 weaned to 1L with an spo2 of 96%. Will continue to wean o2 throughout day. Patient denies SOB, Patient continues to have a moist nonproductive cough at this time. Patient denies pain. IV intact infusing NSS @ 75. VS remain stable. Patient denies any needs at this time. Will continue to monitor.
--- NOTE | 2017-09-03 12:01 | NUR ---
case management note. social service consult for D/C planning. met with pt at bedside. pt states she lives alone in a 2 story house with 0 ADITYA. She has no bedroom or bathroom on the main level. She has 1 flight of stairs to go up to get to the bedroom and bathroom. She states she is independent with ambulation inside her house and has no difficulty with the stairs. She states she uses a cane outside. She is independent with ADL's. she sevilla snot have any oxygen or Hh services. She does not usually drive and her daughters provide transportation. She states her daughter, Terri, lives next door and is supportive. role of pillowcase maker explained. pt states she is planning to return home at D/C and does not anticipate any D/C needs. requested PT/OT orders from physician to help evaluate D/C needs. case management to follow.
--- NOTE | 2017-09-03 15:39 | NUR ---
Patient transferred to room 461-2 with all belongings. Family at bedside. Patient verbalized understanding. VSS.
--- NOTE | 2017-09-03 16:26 | NUR ---
A: Pt. received into room 461. Oriented to call [place] system, pt. expressed understanding.
[2017-09-03] MEDS: RANITIDINE HCL 150 MG TAB PO SCH (20:42)
[2017-09-03] MEDS: CEFTRIAXONE SOD INJ 2,000 MG in DEXTROSE 5% 50ML 50 ML IV SCH (22:17)
[2017-09-04] VITALS (7 sets, daily range): BP systolic 121–167; BP diastolic 69–92; PULSE 72–85; TEMP 36.4–36.8; O2SAT 93–95
--- NOTE | 2017-09-04 00:23 | NUR ---
ID: Pt is alert and oriented x4. Lungs coarse on 2L NC. Voiding in the bathroom without difficulty. IV fluids infusing as per order. Pain controlled with PO pain medication. Tolerating diet. Plan for discharge is uncertain at this time.
[2017-09-04] MEDS: SODIUM CHLORIDE 0.9% 1000ML 1,000 ML IV SCH (06:00)
--- NOTE | 2017-09-04 07:51 | NUR ---
case management note. pt lives alone in her 2 story house. she does not have first floor set up. her daughter lives next door and is supportive. pt plans to return home at D/C and denies needs. PT/OT evals are ordered and pending. pt transferred to med surg room 461. report to unit trimming caser. appropriate trimming caser to follow. Addendum: 09/04/17 at 1159 by Kerrie Palmer SERV Met with pt to review discharge plans. Discussed home health services, pt would like to wait until PT/OT evals/recommendations are completed. Currently she is wearing O2, if she requires at discharge she will need appropriate testing. Pt would use [facility] as DME. Will continue to follow.
[2017-09-04 07:52] LABS: BASO % 0.1 %; BASO ABS # 0.01 K/uL (0-0.2); EOS ABS # 0.07 K/uL (0-0.5); HEMATOCRIT 36.5 % (37-47); HEMOGLOBIN 11.6 g/dL (12.0-16.0); IG# 0.02 K/uL (0.00-0.02); LYMPH % 12.9 %; LYMPH ABS # 0.87 K/uL (1.2-3.4); MEAN CORPUSCULAR HEMOGLOBIN 28.3 pg (25-34); MEAN CORPUSCULAR HGB CONC 31.8 g/dl (32-36); MEAN PLATELET VOLUME 8.6 fL (7.4-10.4); MONO % 13.7 %; MONO ABS # 0.92 K/uL (0.11-0.59); NEUT ABS # 4.84 K/uL (1.4-6.5); PLATELET COUNT 171 K/uL (130-400); RED CELL DISTRIBUTION WIDTH CV 14.7 % (11.5-14.5); RED CELL DISTRIBUTION WIDTH SD 47.8 fL (36.4-46.3); WHITE BLOOD COUNT 6.73 K/uL (4.8-10.8)
[2017-09-04 08:11] LABS: CALCIUM 8.7 mg/dl (8.5-10.1); CREATININE 0.69 mg/dl (0.60-1.20)
[2017-09-04] MEDS: CETIRIZINE HCL 10 MG TAB PO SCH (08:55)
[2017-09-04] MEDS: SODIUM CHLORIDE 1 GM TAB PO SCH ×2 (08:55→19:52)
[2017-09-04] MEDS: AZITHROMYCIN 250 MG TAB PO SCH (08:56)
[2017-09-04] MEDS: MONTELUKAST SOD 10 MG TAB PO SCH (08:57)
[2017-09-04] MEDS: LISINOPRIL 20 MG TAB PO SCH (08:57)
[2017-09-04] MEDS: MULTIVITAMIN TAB PO SCH (08:57)
[2017-09-04] MEDS: PANTOprazole SOD 40 MG TAB PO SCH (08:57)
[2017-09-04] MEDS: CALCIUM 600MG + VIT D 400 IU TAB PO SCH (08:57)
[2017-09-04] MEDS: ENOXAPARIN 40 MG/0.4 ML SYR SC SCH (08:59)
[2017-09-04] MEDS ORDERED: SODIUM CHLORIDE 0.65% NA SOLN 45 ML (OCEAN) PRN (10:45)
[2017-09-04] MEDS ORDERED: METHYLPREDNISOLONE IV 60 MG in SYRINGE 0 ML IV ONE (11:00)
[2017-09-04] MEDS: ALBUT/IPRATROP 3MG/0.5MG NEB 3 ML VIAL INH SCH ×3 (11:28→19:10)
--- NOTE | 2017-09-04 11:40 | DIAGNOSTIC IMAGING REPORT ---
TWO VIEW CHEST CLINICAL HISTORY: Cough. FINDINGS: PA and lateral chest radiographs are compared to study dated 09/02/2017. The PA view is degraded by patient rotation. The cardiac silhouette is not well evaluated. There is atherosclerotic calcification of the thoracic aorta. The pulmonary vasculature is noncongested. There is a large hiatal hernia. There are increasing linear densities at the left lung base, likely representing atelectasis. No airspace consolidation is seen typical for pneumonia and there is no large pleural effusion. No pneumothorax is seen. The skeletal structures are osteopenic. Degenerative change and moderate scoliosis are identified in the thoracic spine. IMPRESSION: 1. Increasing linear opacities at the left lung base likely represent atelectasis. Clinical correlation will be required. 2. The lung are otherwise clear. 3. Large hiatal hernia. Electronically signed by: [place] Starr M.D. 09/04/2017 11:38 AM Dictated Date/Time: 09/04/2017 11:36 AM
--- NOTE | 2017-09-04 12:53 | Family Medicine Progress Note ---
Progress Note Date of Service Sep 04, 2017. Subjective Pt evaluation today including: conversation w/ patient, physical exam, chart review, lab review, review of studies, review of inpatient medication list Pain: 0/10 PO Intake: WNL Voiding: no voiding problems More productive cough today, continues to require oxygen Discussed plan of care and questions answered Constitutional: No fever Eyes: No worsening of vision ENT: No hearing loss Respiratory: + cough, + sputum, + shortness of breath, + dyspnea on exertion , + dyspnea at rest, No wheezing Cardiovascular: No chest pain Abdomen: + diarrhea, No pain, No nausea, No vomiting, No constipation Musculoskeletal: No joint pain, No muscle pain Female : No dysuria Neurologic: + weakness, No balance problems Psychiatric: No depression symptoms Heme: No abnormal bleeding/bruising Endo: + fatigue Skin: No rash Medications Medications Administered Medications (Trade) Dose Ordered Sig/Liberty Route Start Time Stop Time Status Last Admin Dose Admin Sodium Chloride 1,000 ml @ 125 mls/hr Q8H STAT IV 09/02/17 18:20 09/03/17 01:05 DC 09/02/17 18:20 125 MLS/HR Ondansetron HCl (Zofran Inj) 4 mg NOW STAT IV 09/02/17 20:48 09/02/17 20:49 DC 09/02/17 20:55 4 MG Azithromycin (Zithromax Tab) 500 mg NOW STAT PO 09/02/17 22:07 09/02/17 22:09 DC 09/02/17 22:39 500 MG Albuterol/ Ipratropium (Duoneb) 3 ml NOW STAT INH 09/02/17 22:07 09/02/17 22:09 DC 09/02/17 22:07 3 ML Ceftriaxone Sodium (Rocephin Inj) 1 gm NOW STAT IV 09/02/17 22:47 09/02/17 22:50 DC 09/02/17 23:21 1 GM Acetaminophen (Tylenol Tab) 1,000 mg NOW STAT PO 09/02/17 22:47 09/02/17 22:50 DC 09/02/17 23:21 1,000 MG Enoxaparin Sodium (Lovenox Inj) 40 mg Q24H SC 09/03/17 09:00 10/03/17 08:59 09/04/17 08:59 40 MG Sodium Chloride 1,000 ml @ 75 mls/hr [id number] IV 09/03/17 01:30 09/04/17 10:34 DC 09/04/17 06:00 75 MLS/HR Acetaminophen (Tylenol Tab) 650 mg Q4H PRN PO 09/02/17 23:45 10/02/17 23:44 09/03/17 19:48 650 MG Cetirizine HCl (zyrTEC TAB) 10 mg DAILY PO 09/03/17 09:00 10/03/17 08:59 09/04/17 08:55 10 MG Lisinopril (Zestril Tab) 20 mg QAM PO 09/03/17 09:00 10/03/17 08:59 09/04/17 08:57 20 MG Montelukast Sodium (Singulair Tab) 10 mg QAM PO 09/03/17 09:00 10/03/17 08:59 09/04/17 08:57 10 MG Multivitamins (Multivitamin Tab) 1 tab DAILY PO 09/03/17 09:00 10/03/17 08:59 09/04/17 08:57 1 TAB Pantoprazole Sodium (Protonix Tab) 40 mg QAM PO 09/03/17 09:00 10/03/17 08:59 09/04/17 08:57 40 MG Ranitidine HCl (zANTac TAB) 150 mg QPM PO 09/03/17 21:00 10/03/17 20:59 09/03/17 20:42 150 MG Sodium Chloride (Sodium Chloride Tab) 1 gm BID PO 09/03/17 09:00 10/03/17 08:59 09/04/17 08:55 1 GM Calcium/Vitamin D (Caltrate Plus Tab) 1 tab DAILY PO 09/03/17 09:00 10/03/17 08:59 09/04/17 08:57 1 TAB Ceftriaxone Sodium 2000 mg/ Dextrose 70 ml @ 100 mls/hr Q24H IV 09/03/17 23:00 09/08/17 23:41 09/03/17 22:17 100 MLS/HR Azithromycin (Zithromax Tab) 250 mg QAM PO 09/03/17 09:00 09/10/17 08:59 09/04/17 08:56 250 MG Albuterol Sulfate (Ventolin 0.083% 2.5MG/3ML Neb) 2.5 mg Q6R PRN INH 09/03/17 05:30 10/03/18 05:29 09/03/17 17:56 2.5 MG Methylprednisolone Sodium Succinate 60 mg/Syringe 0.96 ml @ 1.5 mls/min ONE ONCE IV 09/04/17 11:00 09/04/17 11:01 DC 09/04/17 12:27 1.5 MLS/MIN Objective Vital Signs Date Time Temp Pulse Resp B/P (MAP) Pulse Ox O2 Delivery O2 Flow Rate FiO2 09/04/17 07:21 36.8 72 18 150/88 (108) 95 Nasal Cannula 1.0 09/03/17 23:55 36.7 64 18 109/65 (80) 96 Nasal Cannula 1.0 09/03/17 19:30 Nasal Cannula 2.0 09/03/17 18:23 96 Nasal Cannula 2.0 09/03/17 17:56 96 18 87 Room Air 09/03/17 16:04 36.5 90 18 160/79 (106) 91 Room Air 09/03/17 16:00 92 Room Air 09/03/17 15:37 36.6 82 16 96 Physical Exam General Appearance: no apparent distress Eyes: normal inspection ENT: normal ENT inspection, + pertinent finding (dry nasal mucus membranes) Neck: supple Respiratory/Chest: + decreased breath sounds (bilat bases), + pertinent finding (coarse breath sounds thoughout) Cardiovascular: regular rate, rhythm, no murmur Abdomen: normal bowel sounds, non tender, soft Extremities: normal range of motion, non-tender, normal inspection, + pedal edema (+1 bilat edema, non pitting but BL) Neurologic/Psychiatric: alert, normal mood/affect, oriented x 3 Skin: normal color, warm/dry, no rash Lymphatic: no adenopathy Laboratory Results Results Past 24 Hours Test 09/04/17 07:27 Range/Units White Blood Count 6.73 4.8-10.8 K/uL Red Blood Count 4.10 4.2-5.4 M/uL Hemoglobin 11.6 12.0-16.0 g/dL Hematocrit 36.5 37-47 % Mean Corpuscular Volume 89.0 80-100 fL Mean Corpuscular Hemoglobin 28.3 25-34 pg Mean Corpuscular Hemoglobin Concent 31.8 32-36 g/dl Platelet Count 171 130-400 K/uL Mean Platelet Volume 8.6 7.4-10.4 fL Neutrophils (%) (Auto) 72.0 % Lymphocytes (%) (Auto) 12.9 % Monocytes (%) (Auto) 13.7 % Eosinophils (%) (Auto) 1.0 % Basophils (%) (Auto) 0.1 % Neutrophils # (Auto) 4.84 1.4-6.5 K/uL Lymphocytes # (Auto) 0.87 1.2-3.4 K/uL Monocytes # (Auto) 0.92 0.11-0.59 K/uL Eosinophils # (Auto) 0.07 0-0.5 K/uL Basophils # (Auto) 0.01 0-0.2 K/uL RDW Standard Deviation 47.8 36.4-46.3 fL RDW Coefficient of Variation 14.7 11.5-14.5 % Immature Granulocyte % (Auto) 0.3 % Immature Granulocyte # (Auto) 0.02 0.00-0.02 K/uL Sodium Level 136 136-145 mmol/L Potassium Level 4.0 3.5-5.1 mmol/L Chloride Level 102 98-107 mmol/L Carbon Dioxide Level 27 21-32 mmol/L Anion Gap 7.0 3-11 mmol/L Blood Urea Nitrogen 10 7-18 mg/dl Creatinine 0.69 0.60-1.20 mg/dl Est Creatinine Clear Calc Drug Dose 45.0 ml/min Estimated GFR () 89.5 Estimated GFR (Non- 77.2 BUN/Creatinine Ratio 14.0 10-20 Random Glucose 84 70-99 mg/dl Calcium Level 8.7 8.5-10.1 mg/dl Microbiology Results 09/04/17 C.difficile Toxin B Gene (PCR) - Final, Complete No C. difficile toxin B gene detected Assessment and Plan 89 yo F with h/o Asthma that presented to us with SOB and hypoxia. Patient is typically treated just with Singulair at home. Continues to have oxygen requirement with a more productive cough since admission. Acute Hypoxic Respiratory failure secondary to asthma exacerbation - acute sinusitis vs viral URI vs PNA?? - with worsening symptoms will increase to duonebs QIDR and add Advair 250/50 - 60 mg of IV SoluMedrol once today with 60 mg of PO prednisone tomorrow, reassess need for prednisone taper tomorrow - Azithromycin 11/09 and Rocephin 11/11 cont'd day - considering worsening symptoms CXR PA/Lat to assess for developing PNA - Wean o2 with goal of 90% - plan to discharge home with rescue inhaler and potential a maintenance inhaler - continue 10 mg of Singulair - incentive aurelio Hypertension- well controlled - continue lisinopril 20 mg Acute on Chronic Hyponatremia- much improved - Continue Na supplementation 1 gm BID NaCl - NSS @ 75 cc/h was given since admission, as now WNL will d/c GERD/Hiatal Hernia - Ranitidine 150mg and Protonix 40 mg DVT Prophylaxis - Lovenox Dispo: Pt/ot pending as patient hypoxic FULL CODE Resident Physician Supervision Note: I interviewed and examined the patient. Discussed with Dr. Neal and agree with findings and plan as documented in the note. Any exceptions or clarifications are listed here: None Documented By: Jose Adam feeling about the same but deeper cough feeling like it's in her chest. sob not really better. still hoping to go home today. angus noted fatigued and coughing, lungs coarse w scattered rhonchi asthma exacerbation, likely sinusitis, acute hypoxia - stable but not improving , definitely does not appear safe enough to go home. add steroids, continue supportive care. otherwise as above Continued [facility] stay due to: abnormal vital signs Discharge planning: uncertain
--- NOTE | 2017-09-04 13:56 | NUR ---
[facility]:Follow up appt info added to the DC instructions - Dr. Hines on ThursdaySeptember 15 at 10:20 am
[2017-09-04] MEDS: FLUTICASONE/SALMETEROL 250/50 (ADVAIR) 14 PUFF/1 INHALER INH SCH (19:51)
[2017-09-04] MEDS: RANITIDINE HCL 150 MG TAB PO SCH (19:55)
[2017-09-04] MEDS: CEFTRIAXONE SOD INJ 2,000 MG in DEXTROSE 5% 50ML 50 ML IV SCH (22:38)
--- NOTE | 2017-09-05 02:00 | NUR ---
ID: Patient resting in bed. Alert and oriented x 4, can be forgetful when awoken. Denies chest pain and shortness of breath. Denies pain at this time. VSS. Lungs coarse, non productive cough. O2 2L NC. Left forearm saline lock. Supervision out of bed. Bed alarm on for safety. Plan for discharge home with services, daughter lives closeby. Will continue to monitor.
[2017-09-05 07:30] VITALS: BP 173/80; PULSE 75; TEMP 36.6; O2SAT 91
[2017-09-05 07:49] VITALS: PULSE 71; O2SAT 92
[2017-09-05] MEDS: ALBUT/IPRATROP 3MG/0.5MG NEB 3 ML VIAL INH SCH ×3 (07:49→15:22)
[2017-09-05] MEDS: FLUTICASONE/SALMETEROL 250/50 (ADVAIR) 14 PUFF/1 INHALER INH SCH (09:01)
[2017-09-05] MEDS: MULTIVITAMIN TAB PO SCH (09:03)
[2017-09-05] MEDS: PANTOprazole SOD 40 MG TAB PO SCH (09:03)
[2017-09-05] MEDS: LISINOPRIL 20 MG TAB PO SCH (09:03)
[2017-09-05] MEDS: MONTELUKAST SOD 10 MG TAB PO SCH (09:04)
[2017-09-05] MEDS: CALCIUM 600MG + VIT D 400 IU TAB PO SCH (09:04)
[2017-09-05] MEDS: ENOXAPARIN 40 MG/0.4 ML SYR SC SCH (09:04)
[2017-09-05] MEDS: AZITHROMYCIN 250 MG TAB PO SCH (09:04)
[2017-09-05] MEDS: SODIUM CHLORIDE 1 GM TAB PO SCH (09:04)
[2017-09-05] MEDS: CETIRIZINE HCL 10 MG TAB PO SCH (09:04)
[2017-09-05 10:53] VITALS: O2SAT 92
[2017-09-05 11:18] VITALS: PULSE 80; O2SAT 92
[2017-09-05] MEDS ORDERED: BENZONATATE 100MG CAP PO SCH (14:00)
[2017-09-05] MEDS ORDERED: ADVIN25050 INH (14:08)
[2017-09-05] MEDS ORDERED: ALBINS INH (14:08)
[2017-09-05] MEDS ORDERED: AZIT-57 PO (14:08)
[2017-09-05] MEDS ORDERED: PRD20 PO (14:08)
--- NOTE | 2017-09-05 14:20 | NUR ---
Case Management Note- Received call from that patient is being discharged today and needs home health. Met with patient and daughters at bedside. List of [employer] and home health agencies provided. They chose [facility]. With permission referrals made to both. 2 step results and script for 02 obtained and faxed to [facility]. They will deliver the portable tanks to patient room and the rest of the supplies to patient home. Patient is going to be staying with her daughter, Ny, for a week or so upon discharge. [facility] and [facility] aware of different address. Addendum: 09/05/17 at 1505 by Alycia Still SERV The delivery information was confirmed by Angel from [facility]. Addendum: 09/05/17 at 1534 by Alycia Still SERV Received call from [facility] that they are not able to take patient on for services. Patient family's second choice was [facility]. Referral made. Received call from [facility] that they can start services Mon or Tu. Message left for patient daughter. Awaiting call back. Addendum: 09/05/17 at 1553 by Alycia Still SERV Received call from David at [facility]. He states that he was never aware of 02 to be delivered. Informed him that [facility] confirmed delivery. He apologized and said he spoke with patient family and will arrive at the hospital as soon as possible. Addendum: 09/05/17 at 1624 by Alycia Still SERV Call placed out to [facility] to confirm the address they are delivering to e[place]. Awaiting call back. Addendum: 09/05/17 at 1644 by Alycia Still SERV Received call from David singh [facility] office. He confirmed that he will meet the family at the house once they get home. Addendum: 09/06/17 at 1310 by Alycia Still SERV Discharge instructions faxed to [facility]
--- NOTE | 2017-09-05 14:22 | Discharge Instructions ---
Discharge Instructions Date of Service Sep 05, 2017. Admission Reason for Admission: Asthmatic Bronchitis Discharge Discharge Diagnosis / Problem: asthma Discharge Goals Goal(s): Decrease discomfort, Improve function Activity Recommendations Activity Limitations: per Instructions/Follow-up section . Instructions / Follow-Up Instructions / Follow-Up You were admitted after you presented to the ER with complaints of shortness of breath. You were being treated for asthma exacerbation and required to have oxygen during an admission. Asthma exacerbation: -Uses 2 L of oxygen by nasal cannula on ambulation. - Continue to use albuterol nebulizer every 4 hours as needed - Advair inhaler has also been added - Use prednisone as instructed below: Use 60 mg daily for 2 more days, use 40 mg daily for 3 days Use 20 mg for 3 more days Use 10 mg for 3 more days and then stop - Continue to use azithromycin 250 mg daily for 2 more days. - Use Keflex 500 mg twice daily for 3 more days - Continue to use Zyrtec and Singulair 10 mg - Continue to use incentive spirometer - You may use Tessalon Perles 100 mg thrice daily for cough Hypertension- well controlled - continue lisinopril 20 mg Low sodium level - Continue Na supplementation 1 gm BID NaCl GERD/Hiatal Hernia - Ranitidine 150mg and Protonix 40 mg Please follow-up with your PCP in about 4-5 days Current Hospital Diet Patient's current hospital diet: AHA Diet (Heart Healthy) Discharge Diet Recommended Diet: Regular Diet Pending Studies Studies pending at discharge: no Laboratory Results Lipid Panel Test 07/06/17 08:09 Range/Units Triglycerides Level 91 0-150 mg/dl Cholesterol Level 185 0-200 mg/dl HDL Cholesterol 106 mg/dl Cholesterol/HDL Ratio 1.7 LDL Cholesterol, Calculated 61 mg/dl Medical Emergencies . Who to Call and When: Medical Emergencies: If at any time you feel your situation is an emergency, please call 911 immediately. . Non-Emergent Contact Non-Emergency issues call your: Primary Care Provider . . "Provider Documentation" section prepared by Vidya Walter. . VTE Core Measure Inpt VTE Proph given/why not?: Enoxaparin (Lovenox)SQ Resident Tracking Resident Involvement: Resident Care Provided Care Provided: Adult Hospital Medicine
[2017-09-05] MEDS ORDERED: CEPH500C2 PO (14:24)
[2017-09-05] MEDS ORDERED: BENZ100C84 PO (14:24)
[2017-09-05 14:30] VITALS: BP 173/80; PULSE 80; TEMP 36.6; O2SAT 92
--- NOTE | 2017-09-05 14:39 | Discharge Summary ---
Discharge Summary Date of Service Sep 05, 2017. Discharge Summary Admission Date: Sep 02, 2017 at 23:55 Discharge Date: Sep 05, 2017 Discharge Disposition: Home Principal Diagnosis: asthma exacerbation Problems/Secondary Diagnoses: Hypertension, GERD Medication Reconciliation New Medications: Benzonatate (Tessalon Perles) 100 Mg Cap 1 CAP PO TID for 10 Days, #30 CAP Cephalexin Monohydrate (Keflex) 500 Mg Cap 500 MG PO BID for 3 Days, #6 CAP Albuterol Sulf (Albuterol Sulfate) 2.5 Mg/3 Ml Nebu 2.5 MG INH Q6R PRN for Shortness of Breath, #1 Azithromycin (Azithromycin) 250 Mg Tab 250 MG PO QAM for 2 Days, #2 TAB Fluticasone Prop/Salmeterol (Advair Diskus 250-50 Mcg/Dose) 14 Puff/1 Inhaler Aerp 1 PUFF INH BID, #1 Prednisone (Prednisone) 20 Mg Tab 60 MG PO DAILY, #18 TAB Continued Medications: Calcium (Calcium) 600 Mg Tab 1 TAB PO DAILY Cetirizine Hcl (Zyrtec) 10 Mg Tab 10 MG PO DAILY, TAB Lisinopril (Lisinopril) 20 Mg Tab 20 MG PO QAM Montelukast Sodium (Singulair) 10 Mg Tab 10 MG PO QAM, TAB Multivitamin (Multivitamin) Tab 1 TAB PO DAILY, TAB Pantoprazole (Protonix) 40 Mg Tab 40 MG PO QAM, #30 TAB Ranitidine (Zantac) 150 Mg Tab 150 MG PO QPM, TAB Sodium Chloride (Sodium Chloride) 1 Gm Tab 1 GM PO BID Discharge Exam Doing better today. Denies any shortness of breath or wheezing or chest pain. Requests to be discharged today Review of Systems: Constitutional: No fever, No chills Eyes: No worsening of vision ENT: No hearing loss Respiratory: + cough, No sputum, No wheezing, No shortness of breath Cardiovascular: No chest pain Abdomen: No pain, No nausea, No vomiting Musculoskeletal: No joint pain Genitourinary - Female: No dysuria, No urinary frequency, No urinary urgency Physical Exam: General Appearance: WD/WN Eyes: normal inspection ENT: + pertinent finding (hearing loss) Neck: supple Respiratory/Chest: no respiratory distress, no accessory muscle use, + decreased breath sounds Cardiovascular: regular rate, rhythm Abdomen / GI: soft Neurologic/Psychiatric: alert, normal mood/affect, oriented x 3 Hospital Course 89-year-old female presented with complaints of generalized weakness and illness for about 2 weeks which started started after an upper respiratory tract infection. She presented to the ER with complaints of shortness of breath , headache and generalized achiness and was found to have low saturations in the 80s and was admitted for an asthma exacerbation. Acute hypoxic respiratory failure was considered to be secondary to asthma exacerbation worsened by an acute sinusitis. During her admission she was maintained on 2 L of oxygen via nasal cannula to keep her saturations over 90%. She was weaned onto room air on rest but her saturations seem to drop down to 86-88 upon ambulation. Initial x-ray was negative for pneumonia and she was treated with DuoNeb's and Advair was later added and repeat chest x-ray done on 09/04 was negative for pneumonia. She also received IV Solu-Medrol and was tapered to prednisone by mouth which she will continuing upon discharge. She was treated with azithromycin and Rocephin which she will continue upon discharge to finish the course and will also require 2 L of oxygen on ambulation. Her other home medications including albuterol, Singulair and Zyrtec have been continued. Blood pressure was maintained on 20 mg of lisinopril. She has a history of chronic hyponatremia and her sodium level was maintained on NaCl 1 g twice a day. Recommend follow-up with PCP in about a week at which time she can be reassessed for oxygen requirement. Resident Physician Supervision Note: I interviewed and examined the patient. Discussed with Dr. Walter and agree with findings and plan as documented in the note. Any exceptions or clarifications are listed here: None Documented By: Jose Adam feeling better wants to go home. pulse ox still low. vitals noted nad breathing unlabored rhonchi have cleared bronchitis/sinusitis - stable for home, safer at this point home on short-term home O2 than continued risks of hospitalization (deconditioning, delirium, nosocomial infection) and pt strongly desires going home -abx as above -steroid taper -home O2 short term -anticipate ongoing improvement Total Time Spent: Greater than 30 minutes This includes examination of the patient, discharge planning, medication reconciliation, and communication with other providers. Discharge Instructions Please refer to the electronic Patient Visit Report (Discharge Instructions) for additional information. Follow-Up Follow-up with PCP in about a week Additional Copies To Moriah Hines DO Resident Tracking Resident Involvement: Resident Care Provided Care Provided: [facility]
[2017-09-05 15:22] VITALS: PULSE 90; O2SAT 93
--- NOTE | 2017-09-05 17:15 | NUR ---
A: Pt discharged. All discharge instructions and paperwork given to pt and pt's daughters, all verbalized understanding. All belongings with pt. Pt escorted off floor via wheelchair by aid and family. No further needs at this time.
[2017-09-29] MEDS ORDERED: PANT40TA PO (15:29)
[2017-09-29] MEDS ORDERED: MONT1TAB3 PO (15:29)
[2017-09-29] MEDS ORDERED: CETI10TA10 PO (15:29)
[2017-09-29] MEDS ORDERED: SODI1TAB PO (18:56)
[2017-09-29] MEDS ORDERED: LISI-726 PO (18:56)
[2017-09-29] MEDS ORDERED: MULT-506 PO (18:57)
[2017-09-29] MEDS ORDERED: CALC-214 PO (22:39)
[2017-09-29] MEDS ORDERED: LATA0.5S OP (22:40)
[2017-09-29] MEDS ORDERED: DOCU-94 PO (22:40)
[2017-09-29] MEDS ORDERED: RANI300T2 PO (22:40)
== END 2017-09-05 17:15 | disposition home or self-care (01) | DRG 202 ==
LOC: C.EDB 18:11 → C.MSICU 23:55 → EDBEDREQ 09-03 00:05 → ENRESERV 09-03 00:07 → EDBEDREQSVC 09-03 13:11 → ENRESERV 09-03 14:55 → C.MS4W 09-03 15:57
PROVIDERS: ADMIT Hospitalist; ATTEND Family Medicine
DX: J45.901 Unspecified asthma with (acute) exacerbation (principal); E87.1 Hypo-osmolality and hyponatremia; I10 Essential (primary) hypertension; K21.9 Gastro-esophageal reflux disease without esophagitis